=== PATIENT | male | born 1945 | race Caucasian/White ===

== ENCOUNTER 2022-12-31 09:51 | Inpatient (IN) | payer OTHER ==
[2022-12-31 10:34] LABS: #Eosinphils 0.1 thou/uL (0.0-0.7); #Monocytes 0.7 thou/uL (0.11-0.59); #Neutrophils 9.4 thou/uL (1.40-6.50); %Basophils 0.1 % (0.0-1.0); %Eosinophils 0.4 % (0.0-10.0); %Lymphocytes 11.7 % (21.0-51.0); %Monocytes 5.9 % (0.0-10.0); %Neutrophils 81.6 % (42.0-75.0); Hematocrit 54.1 % (42.0-52.0); Hemoglobin 17.8 g/dL (14.0-18.0); Mean Corpuscular HGB CONC 32.9 g/dL (32.0-36.0); Mean Corpuscular Hemoglobin 29.6 pg (27.0-31.0); Mean Corpuscular Volume 89.9 fl (78.0-98.0); Mean Platelet Volume 10.4 fL (7.4-10.4); Platelet Count 180 10x3/uL (130-400); RBC Distribution Width 13.5 % (11.5-14.5); Red Blood Cell (RBC) Count 6.02 mill/uL (4.70-6.10); White Blood Cell (WBC) Count 11.5 10x3/uL (4.8-10.8)
[2022-12-31 11:06] LABS: Anion Gap 23 mmol/L (10-20); BUN (Urea Nitrogen) 19 mg/dL (8.4-25.7); Calc. Creatinine Clearance 0 mL/min (70-130); Carbon Dioxide 19 mmol/L (23-31); Chloride 102 mmol/L (98-107); Potassium 4.5 mmol/L (3.5-5.1); Sodium 139 mmol/L (136-145)
[2022-12-31 11:07] LABS: ALT (SGPT) 14 U/L (8-55); AST (SGOT) 17 U/L (5-34); Albumin 4.6 g/dL (3.4-4.8); Alkaline Phosphatase 73 U/L (40-110); Calcium 9.4 mg/dL (7.8-10.44); Estimated GFR 61; Globulin 3.3 g/dL (2.4-3.5); Glucose 264 mg/dL (83-110); Lipase 44 U/L (8-78); Magnesium 2.2 mg/dL (1.6-2.6); Protein, Total 7.9 g/dL (5.8-8.1)
[2022-12-31] MEDS ORDERED: Heparin 25,000 units/D5W 500 ML ONE (11:20)
[2022-12-31 11:22] LABS: PTT 34.2 sec (22.9-36.1)
[2022-12-31] MEDS ORDERED: Heparin 10,000 UNITS/ 10 ML VIAL SLOW IVP SCH ×2 (11:45→18:30)
[2022-12-31] MEDS ORDERED: Dextrose 50% Abboject 50 ML SYRINGE SLOW IVP PRN (12:20)
[2022-12-31] MEDS ORDERED: Acetaminophen 325 MG TAB PO PRN (12:20)
[2022-12-31] MEDS ORDERED: Glucagon 1 MG/ML KIT IM PRN (12:20)
[2022-12-31] MEDS ORDERED: Dextrose 5% in Water 1,000 ML IV PRN (12:20)
[2022-12-31] MEDS ORDERED: Ondansetron ODT 4 MG TAB PO PRN (12:20)
[2022-12-31 12:30] LABS: Troponin I 0.051 ng/mL (< 0.028)
[2022-12-31 13:24] VITALS: BMI 27.3
[2022-12-31] MEDS ORDERED: Iopamidol-370 76% 500 ML MDV (1 ML CHARGE) ONE (14:54)
[2022-12-31 17:48] LABS: Troponin I 0.595 ng/mL (< 0.028)
[2022-12-31 18:49] LABS: PTT 138.5 sec (22.9-36.1)
[2022-12-31 20:33] LABS: Hematocrit 49.3 % (42.0-52.0); Hemoglobin 16.4 g/dL (14.0-18.0); Platelet Count 174 10x3/uL (130-400)
[2022-12-31] MEDS: Insulin Regular 300 UNITS/3 ML VIAL SC PRN (21:24)
[2022-12-31] MEDS: Famotidine 20 MG TAB PO SCH (21:25)
[2023-01-01 04:20] LABS: #Eosinphils 0.1 thou/uL (0.0-0.7); #Monocytes 0.6 thou/uL (0.11-0.59); #Neutrophils 4.2 thou/uL (1.40-6.50); %Basophils 0.5 % (0.0-1.0); %Eosinophils 1.2 % (0.0-10.0); %Lymphocytes 23.8 % (21.0-51.0); %Monocytes 9.3 % (0.0-10.0); %Neutrophils 64.9 % (42.0-75.0); Hematocrit 49.5 % (42.0-52.0); Hemoglobin 16.2 g/dL (14.0-18.0); Mean Corpuscular HGB CONC 32.7 g/dL (32.0-36.0); Mean Corpuscular Hemoglobin 29.1 pg (27.0-31.0); Mean Platelet Volume 10.5 fL (7.4-10.4); Platelet Count 189 10x3/uL (130-400); RBC Distribution Width 13.6 % (11.5-14.5); Red Blood Cell (RBC) Count 5.56 mill/uL (4.70-6.10); White Blood Cell (WBC) Count 6.5 10x3/uL (4.8-10.8)
[2023-01-01 04:46] LABS: Anion Gap 17 mmol/L (10-20); BUN (Urea Nitrogen) 18 mg/dL (8.4-25.7); Calc. Creatinine Clearance 74 mL/min (70-130); Calcium 9.1 mg/dL (7.8-10.44); Carbon Dioxide 21 mmol/L (23-31); Chloride 107 mmol/L (98-107); Estimated GFR 67; Glucose 130 mg/dL (83-110); Potassium 4.2 mmol/L (3.5-5.1); Sodium 141 mmol/L (136-145)
[2023-01-01] MEDS: Heparin 25,000 units/D5W 500 ML IVPB SCH (08:58)
[2023-01-01] MEDS: Famotidine 20 MG TAB PO SCH ×2 (08:58→20:24)
[2023-01-01] MEDS ORDERED: FLU VACC QS2023(65UP)/MF59C/PF 60 MCG/0.5 ML SYRINGE IM ONE (09:00)
[2023-01-01 10:25] LABS: Critical Call Chem Troponin I RESULT DECREASING; Troponin I 0.566 ng/mL (< 0.028)
[2023-01-01] MEDS: Insulin Regular 300 UNITS/3 ML VIAL SC PRN (12:27)
[2023-01-01] MEDS: Metoprolol Tartrate 50 MG TAB PO SCH (20:24)
[2023-01-02] MEDS: Heparin 25,000 units/D5W 500 ML IVPB SCH (02:09)
[2023-01-02 07:03] LABS: Hemoglobin 16.1 g/dL (14.0-18.0); Mean Corpuscular HGB CONC 32.2 g/dL (32.0-36.0); Mean Corpuscular Hemoglobin 28.9 pg (27.0-31.0); Mean Corpuscular Volume 89.6 fl (78.0-98.0); Mean Platelet Volume 10.5 fL (7.4-10.4); Platelet Count 185 10x3/uL (130-400); RBC Distribution Width 13.5 % (11.5-14.5); Red Blood Cell (RBC) Count 5.58 mill/uL (4.70-6.10); White Blood Cell (WBC) Count 5.9 10x3/uL (4.8-10.8)
[2023-01-02 07:25] VITALS: TEMP 97.4
[2023-01-02 08:09] LABS: Anion Gap 18 mmol/L (10-20); BUN (Urea Nitrogen) 18 mg/dL (8.4-25.7); Calc. Creatinine Clearance 79 mL/min (70-130); Calcium 9.2 mg/dL (7.8-10.44); Carbon Dioxide 19 mmol/L (23-31); Chloride 105 mmol/L (98-107); Estimated GFR 77; Glucose 144 mg/dL (83-110); Potassium 3.8 mmol/L (3.5-5.1); Sodium 138 mmol/L (136-145)
[2023-01-02] MEDS: Famotidine 20 MG TAB PO SCH (08:31)
[2023-01-02] MEDS: Metoprolol Tartrate 50 MG TAB PO SCH (08:31)
[2023-01-02 08:32] VITALS: BP 116/85
[2023-01-02] MEDS ORDERED: Empagliflozin 25 MG TAB PO SCH (09:00)
[2023-01-02] MEDS ORDERED: Cyanocobalamin (Vitamin B-12) 1,000 MCG TAB PO SCH (09:00)
[2023-01-02] MEDS ORDERED: Aspirin 81 mg Enteric Coated Tablet PO SCH (09:00)
[2023-01-02] MEDS ORDERED: Lisinopril 10 MG TAB PO SCH (09:00)
[2023-01-02] MEDS ORDERED: Rosuvastatin 20 MG TAB PO SCH (09:00)
[2023-01-02] MEDS ORDERED: Cholecalciferol 1,000 UNITS (25 MCG) TAB PO SCH (09:00)
[2023-01-02] MEDS ORDERED: Aspirin 325 MG TAB PO SCH ×2 (09:00)
[2023-01-02] MEDS ORDERED: Apixaban 5 MG TAB PO SCH ×2 (14:00→21:00)
== END 2023-01-02 17:23 | disposition home or self-care (01) | DRG 175 ==
LOC: ERS 09:51 → ERHOLD 12:11 → IMCU/EMU 18:19
PROVIDERS: ADMIT Internal Medicine; ATTEND Internal Medicine
DX: I26.99 Other pulmonary embolism without acute cor pulmonale (principal); I21.A1 Myocardial infarction type 2; I82.411 Acute embolism and thrombosis of right femoral vein; I25.10 Atherosclerotic heart disease of native coronary artery without angina pectoris; E11.9 Type 2 diabetes mellitus without complications; E78.5 Hyperlipidemia, unspecified; I10 Essential (primary) hypertension; Z95.1 Presence of aortocoronary bypass graft
CPT/HCPCS: 36415; 36416; 71045; 71275; 80048; 80053; 83690; 83735; 83880; 84484; 85025; 85027; 85610; 85730; 93005; 93306; 93970; J1644; J1815; Q9967